=== PATIENT | female | born 1960 | race Caucasian/White ===

== ENCOUNTER 2023-07-31 12:52 | Outpatient (CLI) | payer OTHER | END 2023-07-31 12:53 | disposition home or self-care (01) | LOC: BICMAMMO 12:52 | PROVIDERS: ATTEND Family Medicine | DX: Z12.31 Encounter for screening mammogram for malignant neoplasm of breast (principal) | CPT/HCPCS: 77063; 77067 ==

== ENCOUNTER 2023-10-14 09:08 | Outpatient (CLI) | payer OTHER ==
[2023-10-14] MEDS ORDERED: Iopamidol 370 76% 100 ML VIAL ONE (09:19)
== END 2023-10-14 09:09 | disposition home or self-care (01) ==
LOC: CT 09:08
PROVIDERS: ATTEND Thoracic Surgery (Cardiothoracic Vascular Surgery)
DX: I73.9 Peripheral vascular disease, unspecified (principal); K76.0 Fatty (change of) liver, not elsewhere classified; I71.43 Infrarenal abdominal aortic aneurysm, without rupture; I70.1 Atherosclerosis of renal artery; K55.069 Acute infarction of intestine, part and extent unspecified
CPT/HCPCS: 75635; 82565